=== PATIENT | male | born 1990 | race American Indian/Alaskan Native ===

== ENCOUNTER 2017-05-10 22:29 | Emergency (ER) | payer OTHER ==
[2017-05-11] MEDS ORDERED: DECADRON IM ONE (04:14)
[2017-05-11] MEDS ORDERED: LIDOCAINE VISCOUS 2% PO ONE (04:14)
--- NOTE | 2017-05-11 04:14 | Emergency Department Report ---
HPI - General Chief Complaint: Sore Throat Time Seen by Provider: 05/11/17 03:54 - HPI HPI: Patient is a 26-year-old male who presents to ED complaining of throat pain 4 days. Patient describes pain as throbbing in nature, 8 out of 10 intensity, nonradiating, localized to his throat. Admits pain with swallowing and eating. Patient denies fever/chills/ nausea/vomiting/abdominal pain/shortness of breath/ chest pain/headache. ED Past Medical Hx - Past Medical History Previous Medical History?: No - Surgical History Past Surgical History?: No - Social History Smoking Status: Never Smoker Substance Use Type: None - Medications Home Medications: Home Medications Medication Instructions Recorded Confirmed Last Taken Type Ibuprofen [Motrin] 800 mg PO Q8HR PRN #30 tablet 05/11/17 Unknown Rx ED Review of Systems ROS: Stated complaint: SORE THROAT Other details as noted in HPI Constitutional: denies: chills, fever Eyes: denies: eye pain, eye discharge, vision change ENT: throat pain. denies: ear pain Respiratory: denies: cough, shortness of breath, wheezing Cardiovascular: denies: chest pain, palpitations Endocrine: no symptoms reported Gastrointestinal: denies: abdominal pain, nausea, diarrhea Genitourinary: denies: urgency, dysuria Musculoskeletal: denies: back pain, joint swelling, arthralgia Skin: denies: rash, lesions Neurological: denies: headache, weakness, paresthesias Psychiatric: denies: anxiety, depression Hematological/Lymphatic: denies: easy bleeding, easy bruising Physical Exam - Physical Exam Vital Signs: Vital Signs 05/10/17 05/10/17 22:45 22:54 Temperature 104.7 F H 100.1 F H Pulse Rate 88 88 Respiratory 18 Rate Blood Pressure 146/90 Blood Pressure 146/90 [Right] O2 Sat by Pulse 98 98 Oximetry Physical Exam: GENERAL: Alert and oriented x3, no apparent distress, Normal Gait, atraumatic. HEAD: Head is normocephalic and a-traumatic. EYES: Extra ocular muscles are intact. Pupils are equal, round, and reactive to light and accommodation. EARS: symetrical, atraumatic, non tender, ear canal clear and moderate cerumen, tympanic membrance non inflamed. gross auditory nml bilaterally. NOSE: Nose symetrical, Nontender,Nares appeared normal. MOUTH:Mouth is well hydrated and without lesions. Tonsils mildly erythematous and swollen, Uvula midline, Tongue not elevated. Mucous membranes are moist. Posterior pharynx clear, no exudate or lesions. Patent airways. NECK: Supple. Non edematous, No carotid bruits. No lymphadenopathy or thyromegaly. No C-spine tenderness LUNGS: Symetrical with respiration, No wheezing, no rales or crackles, CTAB. HEART: S1, S2 present, regular rate and rhythm without murmur, no rubs, no gallops. Non tender to palpation SKIN: Warm and dry, No lesions, No ulceration or induration present. ED Course Vital Signs 05/10/17 05/10/17 22:45 22:54 Temperature 104.7 F H 100.1 F H Pulse Rate 88 88 Respiratory 18 Rate Blood Pressure 146/90 Blood Pressure 146/90 [Right] O2 Sat by Pulse 98 98 Oximetry ED Medical Decision Making - Medical Decision Making ED course: Rapid strep tests ordered rapid strep test negative Patient received 1 dose of Tylenol, 10 mg of Decadron Fever responsive to one dose of Tylenol. Vital signs stable patient is in no acute or respiratory distress. Discussed findings with patient about the negative strep. Discussed the patient that pharyngitis is contagious and to limit sharing spoons and such. to be sent home on Motrin Discussed with patient follow-up with primary care physician. Discussed a force and symptoms to return to ED Patient verbally states he understands and will comply to follow-up. Critical care attestation.: If time is entered above; I have spent that time in minutes in the direct care of this critically ill patient, excluding procedure time. ED Disposition Clinical Impression: Acute tonsillitis Qualifiers: Pharyngitis/tonsillitis etiology: unspecified etiology Qualified Code(s): J03.90 - Acute tonsillitis, unspecified Pharyngitis Qualifiers: Pharyngitis/tonsillitis etiology: unspecified etiology Qualified Code(s): J02.9 - Acute pharyngitis, unspecified Disposition: - TO HOME OR SELFCARE Is pt being admited?: No Does the pt Need Aspirin: No Condition: Stable Instructions: Pharyngitis (ED), Tonsillitis (ED) Additional Instructions: If symptoms worsening or new symptoms arise return to ED for evaluation Take your medication as prescribed. Prescriptions: Ibuprofen [Motrin] 800 mg PO Q8HR PRN #30 tablet PRN Reason: Pain Referrals: PRIMARY CARE, [Primary Care Provider] - 3-5 Days BRENDA FULLER MD [Referring] - 3-5 Days [facility] [Outside] - 3-5 Days [facility] [Outside] - 3-5 Days [facility] [Outside] - 3-5 Days Forms: Accompanied Note, Work/School Release Form(ED) Time of Disposition: 04:42
[2017-05-11] MEDS ORDERED: TYLENOL PO ONE (04:22)
[2017-05-11 05:05] VITALS: BP 139/86
== END 2017-05-11 05:05 | disposition home or self-care (01) ==
LOC: ED 22:29
DX: J03.90 Acute tonsillitis, unspecified (principal); J02.9 Acute pharyngitis, unspecified
CPT/HCPCS: 87116; 87430; 96372; 99282

== ENCOUNTER 2017-11-18 15:15 | Inpatient (IN) | payer SELFPAY ==
[2017-11-18] MEDS ORDERED: TORADOL IV ONE (15:39)
--- NOTE | 2017-11-18 15:54 | Emergency Department Report ---
Blank Doc - Documentation Documentation: Patient is a 27-year-old [place] male who is presenting with swelling for the past 2 weeks in the proximal bicep on the last left upper extremity. Patient states he is tender denies fever. Brief physical exam the patient has a very firm oval shaped area of swelling with some very slight fluctuance but otherwise very taut skin in the proximal bicep. Patient has no surrounding erythema. CT of the upper extremity with contrast be ordered to see if this is more consistent with an abscess versus a mass.
[2017-11-18] MEDS ORDERED: NACL ONE (16:06)
[2017-11-18 16:28] LABS: Basophils % (Auto) 0.5 % (0.0-1.8); Eosinophils # (Auto) 0.2 K/mm3 (0.0-0.4); Eosinophils % (Auto) 2.9 % (0.0-4.3); Hematocrit 42.8 % (35.5-45.6); Hemoglobin 14.5 gm/dl (11.8-15.2); Lymphocytes # (Auto) 2.5 K/mm3 (1.2-5.4); Lymphocytes % (Auto) 43.8 % (13.4-35.0); Mean Corpuscular HGB Conc 34 % (32-34); Mean Corpuscular Hemoglobin 28 pg (28-32); Mean Corpuscular Volume 81 fl (84-94); Monocytes # (Auto) 0.6 K/mm3 (0.0-0.8); Monocytes % (Auto) 10.1 % (0.0-7.3); Platelet Count 280 K/mm3 (140-440); Red Blood Count 5.26 M/mm3 (3.65-5.03)
[2017-11-18 16:37] LABS: BUN/Creatinine Ratio 10; Blood Urea Nitrogen 10 mg/dL (9-20); Calcium 8.5 mg/dL (8.4-10.2); Hemolysis Index 4
[2017-11-18] MEDS ORDERED: BENADRYL IV ONE (16:47)
[2017-11-18] MEDS ORDERED: BENADRYL ONE (16:48)
--- NOTE | 2017-11-18 17:23 | Emergency Department Report ---
HPI - HPI HPI: Patient is a 27-year-old male presents to ED with left arm mass/abscess for the past 2 weeks. Patient states that he had been working out at the gym and that the muscle to his temperature now. Patient states since then the masses, bigger. Patient states it's mildly tender. He denies any trauma injuries to the arm. She denies any medical history of any conditions, denies taking any medications. Admits to shellfish allergies He denies fever assess secession of this has vomited this abdominal pain or chest pain. <CARMEN COSTELLO - Last Filed: 11/18/17 19:01> <WARREN LAST - Last Filed: 11/18/17 19:23> - General Chief Complaint: Skin/Abscess/Foreign Body Time Seen by Provider: 11/18/17 15:34 ED Past Medical Hx - Past Medical History Previous Medical History?: No - Surgical History Additional Surgical History: tubes in ears as child - Social History Smoking Status: Never Smoker Substance Use Type: None <CARMEN COSTELLO - Last Filed: 11/18/17 19:01> <WARREN LAST - Last Filed: 11/18/17 19:23> - Medications Home Medications: Home Medications Medication Instructions Recorded Confirmed Last Taken Type Ibuprofen [Motrin] 800 mg PO Q8HR PRN #30 tablet 05/11/17 Unknown Rx ED Review of Systems ROS: Stated complaint: LFT UPPER ARM MASS/PAINFUL Other details as noted in HPI Constitutional: denies: chills, fever Eyes: denies: eye pain, eye discharge, vision change ENT: denies: ear pain, throat pain Respiratory: denies: cough, shortness of breath, wheezing Cardiovascular: denies: chest pain, palpitations Endocrine: no symptoms reported Gastrointestinal: denies: abdominal pain, nausea, diarrhea Genitourinary: denies: urgency, dysuria Musculoskeletal: denies: back pain, joint swelling, arthralgia Skin: denies: rash, lesions Neurological: denies: headache, weakness, paresthesias Psychiatric: denies: anxiety, depression Hematological/Lymphatic: denies: easy bleeding, easy bruising <CARMEN COSTELLO - Last Filed: 11/18/17 19:01> ROS: Stated complaint: LFT UPPER ARM MASS/PAINFUL Other details as noted in HPI <WARREN LAST - Last Filed: 11/18/17 19:23> Physical Exam - Physical Exam Vital Signs: Vital Signs 11/18/17 15:22 Temperature 98.5 F Pulse Rate 64 Respiratory 16 Rate Blood Pressure 121/85 O2 Sat by Pulse 98 Oximetry Physical Exam: GENERAL: Alert and oriented x3, no apparent distress, Normal Gait, atraumatic. HEAD: Head is normocephalic and a-traumatic. LUNGS: Symetrical with respiration, No wheezing, no rales or crackles, CTAB. HEART: S1, S2 present, regular rate and rhythm without murmur, no rubs, no gallops. Non tender to palpation EXTREMITIES/MUSCULOSKELETAL: No cyanosis, clubbing, rash, lesions or edema. Full ROM bilaterally. UE/LE Pulses 2+ bilaterally. LE and UE 5+ strength bilaterally, 7-8 cm puncture region mass, nonfluctuant, hard, nontender left upper arm anterior axillary region. NEUROLOGIC: The patient is cooperative with no focal neurologic deficits.t. Normal speech. Normal sensation in bilateral upper and lower extremities, No loss of sensation, SKIN: Warm and dry, No lesions, No ulceration or induration present. <CARMEN COSTELLO A - Last Filed: 11/18/17 19:01> - Physical Exam Vital Signs: Vital Signs 11/18/17 11/18/17 15:22 19:21 Temperature 98.5 F 101.5 F H Pulse Rate 64 Respiratory 16 Rate Blood Pressure 121/85 O2 Sat by Pulse 98 Oximetry <WARREN LAST - Last Filed: 11/18/17 19:23> ED Course Vital Signs 11/18/17 15:22 Temperature 98.5 F Pulse Rate 64 Respiratory 16 Rate Blood Pressure 121/85 O2 Sat by Pulse 98 Oximetry <CARMEN COSTELLO A - Last Filed: 11/18/17 19:01> Vital Signs 11/18/17 11/18/17 15:22 19:21 Temperature 98.5 F 101.5 F H Pulse Rate 64 Respiratory 16 Rate Blood Pressure 121/85 O2 Sat by Pulse 98 Oximetry <WARREN LAST - Last Filed: 11/18/17 19:23> ED Medical Decision Making - Lab Data Result diagrams: 11/18/17 15:44 11/18/17 15:44 - Radiology Data Radiology results: report reviewed, image reviewed FINAL REPORT EXAM: CT UPPER EXTREM LT W CON HISTORY: abscss vs mass upper bicep TECHNIQUE: CT of the left upper extremity was performed after the administration of intravenous contrast. Coronal and sagittal reconstructions were included. PRIORS: None. FINDINGS: A left maxillary sinus mucous retention cyst is seen. Several probable reactive left cervical internal jugular chain lymph nodes are seen. There is a focal heterogeneous masslike lesion in the subcutaneous tissues of the anterior aspect of the left upper arm anterior to the biceps muscle. There appears to be a fat plane between this lesion and biceps muscle. The lesion measures 3.3 centimeters AP by 6.0 centimeters transverse by 6.1 centimeters craniocaudal. A 2nd area of soft tissue stranding is seen along the anterior aspect of the left shoulder. This area measures 2.4 x 1.0 centimeters. Several small left axillary lymph nodes are likely reactive. IMPRESSION: 1. Heterogeneous masslike density in the subcutaneous fat of the anterior aspect of the left upper arm concerning for soft tissue neoplasm such as sarcoma versus hematoma. 2. Additional smaller area of subcutaneous soft tissue along the anterior aspect of the left shoulder may represent an additional site of involvement versus a separate skin lesion. Transcribed By: MG Dictated By: AMADOR VIZCAINO MD Electronically Authenticated By: AMADOR VIZCAINO MD Signed Date/Time: 11/18/17 1447 - Medical Decision Making 27-year-old male presents with Left arm mass CBC, BMP ordered. Labs within normal limits CT with contrast ordered. Patient received 50 mg of IV Benadryl due to a shellfish allergy. CT pending, CT scan report depicted above Discussed case with Dr. Last. Signing of patient to attending Dr. Berhane Zafar <CARMEN COSTELLO - Last Filed: 11/18/17 19:01> - Lab Data Result diagrams: 11/18/17 15:44 11/18/17 15:44 - Medical Decision Making Patient spiked a fever of 101.5 was feeling chills be treated with Tylenol did discuss the findings of the CT with the patient and Dr. Alexis who will admit the patient and antibiotics patient also needed a biopsy of this mass as well. <WARREN LAST - Last Filed: 11/18/17 19:23> Critical care attestation.: If time is entered above; I have spent that time in minutes in the direct care of this critically ill patient, excluding procedure time. <CARMEN COSTELLO - Last Filed: 11/18/17 19:01> Critical care attestation.: If time is entered above; I have spent that time in minutes in the direct care of this critically ill patient, excluding procedure time. <WARREN LAST - Last Filed: 11/18/17 19:23> ED Disposition <CARMEN COSTELLO - Last Filed: 11/18/17 19:01> Is pt being admited?: Yes Does the pt Need Aspirin: No <WARREN LAST - Last Filed: 11/18/17 19:23> Clinical Impression: Mass in armpit Qualifiers: Laterality: left Qualified Code(s): R22.32 - Localized swelling, mass and lump , left upper limb Disposition: DC-09 OP ADMIT IP TO THIS HOSP Condition: Stable
--- NOTE | 2017-11-18 18:51 | Cat Scan Report ---
FINAL REPORT EXAM: CT UPPER EXTREM LT W CON HISTORY: abscss vs mass upper bicep TECHNIQUE: CT of the left upper extremity was performed after the administration of intravenous contrast. Coronal and sagittal reconstructions were included. PRIORS: None. FINDINGS: A left maxillary sinus mucous retention cyst is seen. Several probable reactive left cervical internal jugular chain lymph nodes are seen. There is a focal heterogeneous masslike lesion in the subcutaneous tissues of the anterior aspect of the left upper arm anterior to the biceps muscle. There appears to be a fat plane between this lesion and biceps muscle. The lesion measures 3.3 centimeters AP by 6.0 centimeters transverse by 6.1 centimeters craniocaudal. A 2nd area of soft tissue stranding is seen along the anterior aspect of the left shoulder. This area measures 2.4 x 1.0 centimeters. Several small left axillary lymph nodes are likely reactive. IMPRESSION: 1. Heterogeneous masslike density in the subcutaneous fat of the anterior aspect of the left upper arm concerning for soft tissue neoplasm such as sarcoma versus hematoma. 2. Additional smaller area of subcutaneous soft tissue along the anterior aspect of the left shoulder may represent an additional site of involvement versus a separate skin lesion.
[2017-11-18] MEDS ORDERED: PROVENTIL IH PRN (19:24)
[2017-11-18] MEDS ORDERED: TYLENOL PO PRN (19:24)
--- NOTE | 2017-11-18 19:34 | History and Physical Report ---
History of Present Illness Chief complaint: My arm hurts, I feel sick, and i keep having fever History of present illness: 27 YO Male with Obesity presents to ED for evaluation. Pt states that he has experienced pain, redness, and swelling in his left arm for the past 1 month with worsening symptoms over the past week. Pt was seen at an urgent care center and treated for cellulitis, but failed outpatient therapy. Pt states that redness, pain and swelling has gotten progressively worse. Pt states that pain is 5-6/10, localized to left arm. Pt acknowledges fever, and pain which is exacerbated with arm movement. Pt seen and evaluated in ED and found to have LUE cellulitis as well as fever of 101.5. Pt underwent CT scan of the LUE which reveals a soft tissue mass with lymph node involvement, which is suspicious for soft tissue sarcoma. Oncology consulted. Past History Past Medical History: other (obesity) Past Surgical History: Other (Tympanostomy tube placement) Social history: , lives with family. denies: smoking, alcohol abuse, prescription drug abuse, IV drug use Family history: no significant family history (reviewed) Medications and Allergies Allergies Allergy/AdvReac Type Severity Reaction Status Date / Time shellfish derived Allergy Unknown Verified 11/18/17 15:24 Home Medications Medication Instructions Recorded Confirmed Last Taken Type Ibuprofen [Motrin] 800 mg PO Q8HR PRN #30 tablet 05/11/17 Unknown Rx Active Meds: Active Medications Acetaminophen (Tylenol) 650 mg PO Q4H PRN PRN Reason: Pain MILD(1-3)/Fever >100.5/ZHU Albuterol (Proventil) 2.5 mg IH Q4HRT PRN PRN Reason: Shortness Of Breath Ceftriaxone Sodium (Rocephin/Ns 1 Gm/50 Ml) 1 gm in 50 mls @ 100 mls/hr IV Q24HR [place] PRN Reason: Protocol Review of Systems Constitutional: fever, no weight loss, no weight gain, no chills, no sweats Ears, nose, mouth and throat: no ear pain, no ear discharge, no tinnitis, no decreased hearing, no nose pain, no nasal congestion, no nasal discharge Cardiovascular: no chest pain, no orthopnea, no palpitations, no edema, no syncope, no lightheadedness, no shortness of breath Respiratory: no cough, no cough with sputum, no excessive sputum, no hemoptysis , no shortness of breath, no dyspnea on exertion Gastrointestinal: no abdominal pain, no nausea, no vomiting, no diarrhea Genitourinary Male: no hematuria, no flank pain, no discharge, no urinary frequency, no urinary hesitancy Rectal: no pain, no incontinence, no bleeding Musculoskeletal: no neck pain, no shooting arm pain, no arm numbness/tingling, no low back pain, no shooting leg pain, no leg numbness/tingling Integumentary: redness Neurological: no head injury, no transient paralysis, no paralysis, no weakness , no parathesias, no numbness Psychiatric: no anxiety, no memory loss, no change in sleep habits, no sleep disturbances, no insomnia, no hypersomnia, no change in appetite Endocrine: no cold intolerance, no heat intolerance, no polyphagia, no excessive thirst, no polydipsia, no polyuria Hematologic/Lymphatic: no easy bruising, no easy bleeding, no lymphadenopathy, no lymphedema Allergic/Immunologic: no urticaria, no allergic rhinitis, no wheezing Exam - Constitutional Vitals: Temp Pulse Resp BP Pulse Ox 101.5 F H 64 16 121/85 98 11/18/17 19:21 11/18/17 15:22 11/18/17 15:22 11/18/17 15:22 11/18/17 15:22 General appearance: Present: mild distress - EENT Eyes: Present: PERRL ENT: hearing intact, clear oral mucosa - Neck Neck: Present: supple, normal ROM - Respiratory Respiratory effort: normal Respiratory: bilateral: CTA - Cardiovascular Heart Sounds: Present: S1 & S2. Absent: rub, click - Extremities Extremities: pulses symmetrical, No edema Peripheral Pulses: within normal limits - Abdominal General gastrointestinal: Present: soft, non-tender, non-distended, normal bowel sounds Male genitourinary: Present: normal - Rectal Rectal Exam: normal exam-external/orifice - Integumentary Integumentary: Present: clear, dry, erythema (4/6cm Left medial arm mass, indurated, firm, immobile, painful, with surrounding erythema.) - Musculoskeletal Musculoskeletal: strength equal bilaterally, other (Left aarm weakness. ) - Psychiatric Psychiatric: appropriate mood/affect, intact judgment & insight - Neurologic Neurologic: CNII-XII intact, moves all extremities Results - Labs CBC & Chem 7: 11/18/17 15:44 11/18/17 15:44 Labs: Abnormal lab results 11/18/17 Range/Units 15:44 RBC 5.26 H (3.65-5.03) M/mm3 MCV 81 L (84-94) fl Lymph % (Auto) 43.8 H (13.4-35.0) % [place] % (Auto) 10.1 H (0.0-7.3) % Assessment and Plan - Patient Problems (1) Cellulitis of left upper extremity Current Visit: Yes Status: Acute Plan to address problem: IV antibiotics, supportive care, pain control, serial physical exam. 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
[2017-11-19] MEDS ORDERED: ROCEPHIN/NS 1 GM/50 ML 1 GM/50 ML BAG IV SCH (10:00)
--- NOTE | 2017-11-19 10:02 | Progress Note ---
Assessment and Plan Assessment and plan: 27-year-old obese -[place] male patient was admitted with swelling , redness and tenderness of left upper arm of one month duration worse since one week --Possible cellulitis left upper extremity; IV antibiotics, pain medications, supportive care --Soft tissue sarcoma left upper arm; on CT; workup in progress IR consulted for biopsy, oncology consulted for further evaluation and management, consider orthopedic evaluation, Follow biopsy --SIRS by criteria; Empiric antibiotics, pain management, and supportive care --Obesity; BMI 35.7; counseling done advised diet modification, exercise as tolerated and weight reduction when medically stable --DVT prophylaxis with Lovenox Closely monitor the patient and adjust the management as needed Plan of care is reviewed with the patient and his at the bedside Disposition; follow biopsy, and consultants recommendations History Interval history: Patient seen and examined medical records reviewed Hospitalist Physical - Constitutional Vitals: Temp Pulse Resp BP Pulse Ox 98.1 F 60 18 137/86 99 11/19/17 07:20 11/19/17 07:20 11/19/17 07:20 11/19/17 07:20 11/19/17 07:20 General appearance: Present: no acute distress, well-nourished, obese - EENT Eyes: Present: PERRL, EOM intact - Neck Neck: Present: supple, normal ROM - Respiratory Respiratory effort: normal Respiratory: negative: rales, rhonchi, wheezing - Cardiovascular Rhythm: regular Heart Sounds: Present: S1 & S2 - Extremities Extremities: no ischemia, abnormal (left upper arm swelling and tenderness, nonpulsatile) - Abdominal General gastrointestinal: soft, non-tender, non-distended, normal bowel sounds - Integumentary Integumentary: Present: clear, warm - Psychiatric Psychiatric: appropriate mood/affect, cooperative - Neurologic Neurologic: CNII-XII intact, moves all extremities Results - Labs CBC & Chem 7: 11/18/17 15:44 11/18/17 15:44 Labs: Laboratory Last Values WBC 5.6 K/mm3 (4.5-11.0) 11/18/17 15:44 RBC 5.26 M/mm3 (3.65-5.03) H 11/18/17 15:44 Hgb 14.5 gm/dl (11.8-15.2) 11/18/17 15:44 Hct 42.8 % (35.5-45.6) 11/18/17 15:44 MCV 81 fl (84-94) L 11/18/17 15:44 MCH 28 pg (28-32) 11/18/17 15:44 MCHC 34 % (32-34) 11/18/17 15:44 RDW 14.0 % (13.2-15.2) 11/18/17 15:44 Plt Count 280 K/mm3 (140-440) 11/18/17 15:44 Lymph % (Auto) 43.8 % (13.4-35.0) H 11/18/17 15:44 [place] % (Auto) 10.1 % (0.0-7.3) H 11/18/17 15:44 Eos % (Auto) 2.9 % (0.0-4.3) 11/18/17 15:44 Baso % (Auto) 0.5 % (0.0-1.8) 11/18/17 15:44 Lymph # 2.5 K/mm3 (1.2-5.4) 11/18/17 15:44 [place] # 0.6 K/mm3 (0.0-0.8) 11/18/17 15:44 Eos # 0.2 K/mm3 (0.0-0.4) 11/18/17 15:44 Baso # 0.0 K/mm3 (0.0-0.1) 11/18/17 15:44 Seg Neutrophils % 42.7 % (40.0-70.0) 11/18/17 15:44 Seg Neutrophils # 2.4 K/mm3 (1.8-7.7) 11/18/17 15:44 Sodium 138 mmol/L (137-145) 11/18/17 15:44 Potassium 3.7 mmol/L (3.6-5.0) 11/18/17 15:44 Chloride 98.7 mmol/L (98-107) 11/18/17 15:44 Carbon Dioxide 25 mmol/L (22-30) 11/18/17 15:44 Anion Gap 18 mmol/L 11/18/17 15:44 BUN 10 mg/dL (9-20) 11/18/17 15:44 Creatinine 1.0 mg/dL (0.8-1.5) 11/18/17 15:44 Estimated GFR > 60 ml/min 11/18/17 15:44 BUN/Creatinine Ratio 10 % 11/18/17 15:44 Glucose 89 mg/dL (75-100) 11/18/17 15:44 Calcium 8.5 mg/dL (8.4-10.2) 11/18/17 15:44
--- NOTE | 2017-11-19 10:02 | Event Note ---
Date: 11/19/17 Consulted for LUE mass biopsy. The LUE CT demonstrates enhancement, but it is unclear if this mass is vascular in etiology (i.e. hemangioma, AVM, etc). I recommend duplex US evaluation, as core biopsy of a vascular mass is relatively contraindicated.
[2017-11-19] MEDS: cefTRIAXone 1 GM in NACL 0.9% 20 ML IV SCH (10:23)
[2017-11-19] MEDS ORDERED: Fluarix Quad 2017-2018(36 MOS+ IM ONE (12:00)
--- NOTE | 2017-11-19 15:42 | Hem/Onc Consultation ---
History of Present Illness - Reason for Consult Consult date: 11/19/17 - History of Present Illness 27 YO Male with Obesity presents to ED for evaluation. Pt states that he has experienced pain, redness, and swelling in his left arm for the past 1 month with worsening symptoms over the past week. Pt was seen at an urgent care center and treated for cellulitis, but failed outpatient therapy. Pt states that redness, pain and swelling has gotten progressively worse. Pt states that pain is 5-6/10, localized to left arm. Pt acknowledges fever, and pain which is exacerbated with arm movement. Pt seen and evaluated in ED and found to have LUE cellulitis as well as fever of 101.5. Pt underwent CT scan of the LUE which reveals a soft tissue mass with lymph node involvement, which is suspicious for soft tissue sarcoma. No shortness of breath, no N/V and no change in bowel habits. No chest pain. no headaches Past History Past Medical History: No medical history, other (obesity) Past Surgical History: Other (Tympanostomy tube placement) Social history: , lives with family. denies: smoking, alcohol abuse, prescription drug abuse, IV drug use Family history: no significant family history (reviewed) Medications and Allergies Allergies Allergy/AdvReac Type Severity Reaction Status Date / Time shellfish derived Allergy Unknown Verified 11/18/17 15:24 Home Medications Medication Instructions Recorded Confirmed Last Taken Type Ibuprofen [Motrin] 800 mg PO Q8HR PRN #30 tablet 05/11/17 Unknown Rx Active Meds: Active Medications Acetaminophen (Tylenol) 650 mg PO Q4H PRN PRN Reason: Pain MILD(1-3)/Fever >100.5/ZHU Albuterol (Proventil) 2.5 mg IH Q4HRT PRN PRN Reason: Shortness Of Breath Ceftriaxone Sodium 1 gm/ (Sodium Chloride) 20 mls @ 20 mls/10 min IV Q24HR [place] Last Admin: 11/19/17 10:23 Dose: 20 mls/10 min Review of Systems All systems: negative Constitutional: weight gain Exam - Constitutional Vitals: Last Vital Signs Temp 98.1 F 11/19/17 07:20 Pulse 60 11/19/17 07:20 Resp 18 11/19/17 07:20 BP 137/86 11/19/17 07:20 Pulse Ox 100 11/19/17 09:42 General appearance: no acute distress Performance status: 0-fully active - EENT Eyes: PERRL, EOM intact Lymph node exam: negative cervical, negative supraclavicular, negative axillary - Neck Neck: supple - Respiratory Respiratory: bilateral: CTA Extremities: no ischemia, abnormal (Left arm with 3 cm mass close to the axilla that is tender and well circumscribed and mobile) - Integumentary Integumentary: clear, warm, dry - Psychiatric Psychiatric: appropriate mood/affect Results - Labs lab Results: Laboratory Results - last 24 hr 11/18/17 11/18/17 15:44 15:44 WBC 5.6 RBC 5.26 H Hgb 14.5 Hct 42.8 MCV 81 L MCH 28 MCHC 34 RDW 14.0 Plt Count 280 Lymph % (Auto) 43.8 H Smith % (Auto) 10.1 H Eos % (Auto) 2.9 Baso % (Auto) 0.5 Lymph # 2.5 Smith # 0.6 Eos # 0.2 Baso # 0.0 Seg Neutrophils % 42.7 Seg Neutrophils # 2.4 Sodium 138 Potassium 3.7 Chloride 98.7 Carbon Dioxide 25 Anion Gap 18 BUN 10 Creatinine 1.0 Estimated GFR > 60 BUN/Creatinine Ratio 10 Glucose 89 Calcium 8.5 - Imaging and cardiology Other: report reviewed (CT scan of arm) Assessment and Plan 1- lt arm subcutaneous mass concerning for malignancy especially with rapid growth pattern. Agree with need to biopsy but would recommend surgical evaluation rather than a bx by IR. will consult surgery. will also order CT scan of the chest. Dr Em aware of the patient and will follow up next week.
--- NOTE | 2017-11-20 07:28 | Hem/Onc Progress Note ---
Assessment and Plan 1- lt arm subcutaneous mass concerning for malignancy especially with rapid growth pattern. Surgery will be seeing him today. CT scan of the chest ordered. if ready for discharge, can follow up with Dr Em Subjective Date of service: 11/20/17 Interval history: mass is hurting Objective - Constitutional Vitals: Last Vital Signs Temp 97.8 F 11/20/17 07:05 Pulse 70 11/20/17 07:05 Resp 16 11/20/17 07:05 BP 118/79 11/20/17 07:05 Pulse Ox 97 11/20/17 07:05 General appearance: no acute distress
--- NOTE | 2017-11-20 07:41 | Progress Note ---
Assessment and Plan Assessment and plan: 27 YO Male with Obesity presents to ED for evaluation. Pt states that he has experienced pain, redness, and swelling in his left arm for the past 1 month with worsening symptoms over the past week. Pt was seen at an urgent care center and treated for cellulitis, but failed outpatient therapy. Pt states that redness, pain and swelling has gotten progressively worse. Pt states that pain is 5-6/10, localized to left arm. Pt acknowledges fever, and pain which is exacerbated with arm movement. Pt seen and evaluated in ED and found to have LUE cellulitis as well as fever of 101.5. Pt underwent CT scan of the LUE which reveals a soft tissue mass with lymph node involvement, which is suspicious for soft tissue sarcoma. Oncology consulted. Evaluation oncologist felt that this could be secondary to malignancy due to the rapid growth pattern. Awaiting surgical input. Also a CT chest was ordered to look for any lymph nodes or metastasis. Patient was started on antibiotic therapy on admission. Vascular visit the patient initially wanted and Doppler ultrasound so that we do not biopsy of vascular mass.VASCULAR LAB PRELIMINARY REPORT showed "LUE ARTERIAL DOPPLER COMPLETED SOFT TISSUE CHANGES NOTED IN LT AXILLA, DOES NOT APPEAR TO BE VASCULARIZED 2.7 X 2.1 X 2.2CM" Will await full report Sepsis secondary to resumed cellulitis left upper extremity; present on admission * Fevers improved. 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 Await orthopedic evaluation, Follow biopsy Obesity; BMI 35.7; * counseling done advised diet modification, * exercise as tolerated and weight reduction when medically stable DVT prophylaxis with Lovenox Disposition; follow biopsy, and consultants recommendations History Interval history: Patient seen and examined this morning and noted distress still with some pain in the left upper extremity mass sites. Hospitalist Physical - Physical exam Narrative exam: VITAL SIGNS: Reviewed. GENERAL: The patient appeared well nourished and normally developed. Vital signs as documented. HEAD: No signs of head trauma. EYES: Pupils are equal. Extraocular motions intact. EARS: Hearing grossly intact. MOUTH: Oropharynx is normal. NECK: No adenopathy, no JVD. CHEST: Chest with clear breath sounds bilaterally. No wheezes, rales, or rhonchi. CARDIAC: Regular rate and rhythm. S1 and S2, without murmurs, gallops, or rubs. VASCULAR: No Edema. Peripheral pulses normal and equal in all extremities. ABDOMEN: Soft, without detectable tenderness. No sign of distention. No rebound or guarding, and no masses palpated. Bowel Sounds normal. MUSCULOSKELETAL: Good range of motion of all major joints. Extremities without clubbing, cyanosis or edema. NEUROLOGIC EXAM: Alert and oriented x 3. No focal sensory or strength deficits. Speech normal. Follows commands. PSYCHIATRIC: Mood normal. SKIN: No rash or lesions. lHis actually obeseeft upper arm swelling and tenderness, nonpulsatile - Constitutional Vitals: Temp Pulse Resp BP Pulse Ox 97.8 F 70 16 118/79 97 11/20/17 07:05 11/20/17 07:05 11/20/17 07:05 11/20/17 07:05 11/20/17 07:05 General appearance: Present: no acute distress, well-nourished, obese Results - Labs CBC & Chem 7: 11/18/17 15:44 11/18/17 15:44 Labs: Laboratory Last Values WBC 5.6 K/mm3 (4.5-11.0) 11/18/17 15:44 RBC 5.26 M/mm3 (3.65-5.03) H 11/18/17 15:44 Hgb 14.5 gm/dl (11.8-15.2) 11/18/17 15:44 Hct 42.8 % (35.5-45.6) 11/18/17 15:44 MCV 81 fl (84-94) L 11/18/17 15:44 MCH 28 pg (28-32) 11/18/17 15:44 MCHC 34 % (32-34) 11/18/17 15:44 RDW 14.0 % (13.2-15.2) 11/18/17 15:44 Plt Count 280 K/mm3 (140-440) 11/18/17 15:44 Lymph % (Auto) 43.8 % (13.4-35.0) H 11/18/17 15:44 Ware % (Auto) 10.1 % (0.0-7.3) H 11/18/17 15:44 Eos % (Auto) 2.9 % (0.0-4.3) 11/18/17 15:44 Baso % (Auto) 0.5 % (0.0-1.8) 11/18/17 15:44 Lymph # 2.5 K/mm3 (1.2-5.4) 11/18/17 15:44 Ware # 0.6 K/mm3 (0.0-0.8) 11/18/17 15:44 Eos # 0.2 K/mm3 (0.0-0.4) 11/18/17 15:44 Baso # 0.0 K/mm3 (0.0-0.1) 11/18/17 15:44 Seg Neutrophils % 42.7 % (40.0-70.0) 11/18/17 15:44 Seg Neutrophils # 2.4 K/mm3 (1.8-7.7) 11/18/17 15:44 Sodium 138 mmol/L (137-145) 11/18/17 15:44 Potassium 3.7 mmol/L (3.6-5.0) 11/18/17 15:44 Chloride 98.7 mmol/L (98-107) 11/18/17 15:44 Carbon Dioxide 25 mmol/L (22-30) 11/18/17 15:44 Anion Gap 18 mmol/L 11/18/17 15:44 BUN 10 mg/dL (9-20) 11/18/17 15:44 Creatinine 1.0 mg/dL (0.8-1.5) 11/18/17 15:44 Estimated GFR > 60 ml/min 11/18/17 15:44 BUN/Creatinine Ratio 10 % 11/18/17 15:44 Glucose 89 mg/dL (75-100) 11/18/17 15:44 Calcium 8.5 mg/dL (8.4-10.2) 11/18/17 15:44
--- NOTE | 2017-11-20 09:31 | Cat Scan Report ---
CT scan of chest with IV contrast: History: Mass axilla. Findings: No endobronchial or mediastinal mass. No mediastinal, hilar or axillary adenopathy. No pleural pericardial effusion. Normal lung parenchyma. No discrete nodularity or consolidation. Visualized upper abdominal viscera appears unremarkable. There is a mass measuring 5.9 x 5 cm in diameter with attenuation value of 35.7 HU noted at the anterior left axilla subcutaneous tissue. The attenuation value of the adjacent muscular tissue is 75.2 H U. Impression: Mass left axilla subcutaneous tissue could be a hematoma or a sarcoma among other conditions.
[2017-11-20] MEDS: cefTRIAXone 1 GM in NACL 0.9% 20 ML IV SCH (11:10)
--- NOTE | 2017-11-20 13:46 | Consultation ---
History of Present Illness Consult date: 11/20/17 Requesting physician: NERY GUNTER Chief complaint: mass left arm - History of present illness History of present illness: 27 yo M with no PMHx presented to hospital with painful mass of left arm. The patient states he went to the gym to work out as he usually does and began to feel sore in the left upper biceps area for the next 2-3 days following the work out. This was approximately one month ago. Since then he noticed swelling of that sore area into a lump and that lump has continued to grow over the last several weeks. The area has never drained fluid. It did become red and hot over the last few days, prompting him to come to ER. He denies f/c, CP, SOB, n/v, abd pain. He has never had anything like this in the past. He does not have a family hx of cancer. Past History Past Medical History: No medical history, other (obesity) Past Surgical History: Other (Tympanostomy tube placement) Social history: , lives with family. denies: smoking, alcohol abuse, prescription drug abuse, IV drug use Family history: no significant family history (reviewed), diabetes, hypertension Medications and Allergies Allergies Allergy/AdvReac Type Severity Reaction Status Date / Time shellfish derived Allergy Unknown Verified 11/18/17 15:24 Home Medications Medication Instructions Recorded Confirmed Last Taken Type Ibuprofen [Motrin] 800 mg PO Q8HR PRN #30 tablet 05/11/17 11/19/17 Unknown Rx Active Meds: Active Medications Acetaminophen (Tylenol) 650 mg PO Q4H PRN PRN Reason: Pain MILD(1-3)/Fever >100.5/ZHU Albuterol (Proventil) 2.5 mg IH Q4HRT PRN PRN Reason: Shortness Of Breath Ceftriaxone Sodium 1 gm/ (Sodium Chloride) 20 mls @ 20 mls/10 min IV Q24HR [place] Last Admin: 11/20/17 11:10 Dose: Not Given Review of Systems All systems: negative (10 pt ROS was performed and negative except for that listed in HPI) Exam Vital Signs Temp Pulse Resp BP Pulse Ox 98.5 F 64 16 121/85 98 11/18/17 15:22 11/18/17 15:22 11/18/17 15:22 11/18/17 15:22 11/18/17 15:22 Narrative exam: Gen: AAOx3. NAD ENT: no scleral icterus or conjunctival pallor. no LAD CV: S1, S2+. no m/r/g Resp: CTAB, no w/r/r/ Abd: soft, NT Ext: LUE firm, partially mobile, tender mass measuring approximately 5 x5 cm, located in the left outer axilla/upper arm over the biceps muscle. No erythema or drainage. No axillary lymphadenopathy Results - Labs 11/18/17 15:44 11/18/17 15:44 - Imaging CT scan - chest: report reviewed, image reviewed (mass left axilla subcutnaeous tissue, could be a hematoma or sarcoma among other conditions.) Additional studies: CT LUE -heterogenous masslike density in the subcutaneous fat of the anterior aspect of the left upper arm concerning for soft tissue neoplasm such as sarcoma vs hematoma. Dopple U/S LUE mass - prelim report from technologist - SOFT TISSUE CHANGES NOTED IN LT AXILLA, DOES NOT APPEAR TO BE VASCULARIZED 2.7 X 2.1 X 2.2CM Assessment and Plan 27 y/o M with left upper extremity mass, hematoma vs sarcoma 1. oncology consulted and concern for sarcoma 2. Will make NPO p MN and discuss with IR and Dr. Em about best approach to biopsy of mass in am. If excisional biopsy is best, will schedule for OR 3. I discussed the plan with the patient and his family and all questions answered. They understand and are agreeable to the plan. Thank you for this consultation, please call with questions or concerns.
--- NOTE | 2017-11-21 08:50 | Event Note ---
Date: 11/21/17 Reviewed u/s. Mass is not hypervascular or vascular in etiology. While hematoma is possible, the sonographic characteristics would favor a true solid mass. I will discuss this with Sher Macedo and Manav - we will decide the best way to proceed regarding core biopsy vs excision.
--- NOTE | 2017-11-21 09:52 | Event Note ---
Date: 11/21/[address] Norman (IR) and Dr. Em this am. Mass is solid in nature on arterial duplex. The mass is large and the entire anterior aspect of the mass is adjacent to overlying skin with the posterior aspect abutting biceps muscle. In order to obtain tissue for diagnosis, we will proceed with incisional biopsy. Further management will depend on pathology results. I discussed this with the patient and his . All risks and alternatives were discussed. I explained to the patient that the purpose of todays procedure is to obtain tissue for a diagnosis and he will need further resection based on the results of pathology. He understands. Consent was signed and placed on the chart.
[2017-11-21] MEDS ORDERED: XYLOCAINE CARDIAC IV ONE (10:09)
[2017-11-21] MEDS ORDERED: DIPRIVAN 10 MG/ML IV ONE (10:10)
[2017-11-21] MEDS ORDERED: DILAUDID ONE (10:10)
[2017-11-21] MEDS ORDERED: MARCAINE 0.5% 30 ML INFILTRATI ONE (10:23)
[2017-11-21] MEDS ORDERED: XYLOCAINE 1%/ EPI 1:100,000 INFILTRATI ONE ×2 (10:23→11:44)
--- NOTE | 2017-11-21 10:34 | Anesthesia Consultation ---
Anesthesia Consult and Med Hx Date of service: 11/21/17 - Airway Anesthetic Teeth Evaluation: Chipped ROM Head & Neck: Adequate Mental/Hyoid Distance: Adequate Mallampati Class: Class II Intubation Access Assessment: Probably Good - Pulmonary Exam CTA: Yes - Cardiac Exam Cardiac Exam: RRR - Pre-Operative Health Status ASA Pre-Surgery Classification: ASA2 Proposed Anesthetic Plan: General - Pulmonary Hx Smoking: No Hx Asthma: No COPD: No Hx Pneumonia: No - Cardiovascular System Hx Hypertension: No Hx Angina: No - Central Nervous System Hx Psychiatric Problems: No - Gastrointestinal Hx Gastroesophageal Reflux Disease: No - Endocrine Hx End Stage Renal Disease: No Hx Liver Disease: No - Hematic Hx Anemia: No - Other Systems Hx Cancer: No
--- NOTE | 2017-11-21 10:34 | Anesthesia Day of Surgery ---
Anesthesia Day of Surgery - Day of Surgery Patient Examined: Yes Patient H&P Reviewed: Yes Patient is NPO: Yes
[2017-11-21] MEDS ORDERED: ANCEF/STERILE WATER 2 GM/20 ML IV NR (10:35)
[2017-11-21] MEDS ORDERED: DILAUDID IV PRN (10:36)
[2017-11-21] MEDS ORDERED: ZOFRAN IV PRN (10:36)
--- NOTE | 2017-11-21 10:36 | Discharge Summary ---
<NORIS BEVERLY - Last Filed: 11/21/17 12:59> Providers - Providers Date of Admission: 11/18/17 19:24 Attending physician: NERY GUNTER MD 11/18/17 19:27 Consult to Interventional Radiology [CONS] Routine Consulting Provider: JAMAAL ORTEZ Reason For Exam: biopsy Left arm mass Place consult to:: dr. 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 cline Notified:: answering service Phone number called:: Was contact made?: Yes If yes, spoke with:: garrick Time called:: 09:44 11/20/17 07:59 Consult to Physician [CONS] Routine Consulting Provider: NORIS BEVERLY Reason For Exam: left upper ext mass Place consult to:: dr. beverly Notified:: answering service Phone number called:: [phone] Was contact made?: Yes If yes, spoke with:: saleem Time called:: 09:15 Primary care physician: LILIAN POLK Hospitalization Condition: Stable Disposition: DC-01 TO HOME OR SELFCARE Exam - Constitutional Vitals: Temp Pulse Resp BP Pulse Ox 97.7 F 75 16 122/86 95 11/21/17 11:53 11/21/17 12:38 11/21/17 12:38 11/21/17 12:38 11/21/17 12:38 Plan Activity: other (avoid lifting and performing heavy lifting with left arm) Wound: per your surgeon's advice (May remove dressing in 2 days, keep wound open to air. May shower, pat dry, do not scrub. Do not submerge incision. Leave stitches in place, they will be removed in the office.) Follow up with: BARRETT CLINE MD [Staff Physician] - 7 Days LILIAN POLK MD [Primary Care Provider] - 7 Days NORIS BEVERLY DO [Staff Physician] - 10 Days Forms: Work/School Release Form Prescriptions: traMADol [Ultram] 50 mg PO Q6HR PRN #20 tablet PRN Reason: Pain <NERY GUNTER - Last Filed: 11/21/17 21:25> Providers - Providers Date of Admission: 11/18/17 19:24 Attending physician: NERY GUNTER MD 11/18/17 19:27 Consult to Interventional Radiology [CONS] Routine Consulting Provider: JAMAAL ORTEZ Reason For Exam: biopsy Left arm mass Place consult to:: dr. 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 cline Notified:: answering service Phone number called:: Was contact made?: Yes If yes, spoke with:: garrick Time called:: 09:44 11/20/17 07:59 Consult to Physician [CONS] Routine Consulting Provider: NORIS BEVERLY Reason For Exam: left upper ext mass Place consult to:: dr. beverly Notified:: answering service Phone number called:: [phone] Was contact made?: Yes If yes, spoke with:: saleem Time called:: 09:15 Primary care physician: LILIAN POLK Hospitalization Reason for admission: left upper extremity mass Hospital course: 27 YO Male with Obesity presents to ED for evaluation. Pt states that he has experienced pain, redness, and swelling in his left arm for the past 1 month with worsening symptoms over the past week. Pt was seen at an urgent care center and treated for cellulitis, but failed outpatient therapy. Pt states that redness, pain and swelling has gotten progressively worse. Pt states that pain is 5-6/10, localized to left arm. Pt acknowledges fever, and pain which is exacerbated with arm movement. Pt seen and evaluated in ED and found to have LUE cellulitis as well as fever of 101.5. Pt underwent CT scan of the LUE which reveals a soft tissue mass with lymph node involvement, which is suspicious for soft tissue sarcoma. Oncology consulted. Evaluation oncologist felt that this could be secondary to malignancy due to the rapid growth pattern. Awaiting surgical input. Also a CT chest was ordered to look for any lymph nodes or metastasis. Patient was started on antibiotic therapy on admission. Vascular visit the patient initially wanted and Doppler ultrasound so that we do not biopsy of vascular mass.VASCULAR LAB PRELIMINARY REPORT showed "LUE ARTERIAL DOPPLER COMPLETED SOFT TISSUE CHANGES NOTED IN LT AXILLA, DOES NOT APPEAR TO BE VASCULARIZED 2.7 X 2.1 X 2.2CM". Patient was seen by vascular surgeon with no recommendation for an endovascular procedure. General surgery was consulted in addition to oncologist due to concern for sarcoma. Patient will proceed findings incisional biopsy and will be discharged to follow with oncologist and surgery outpatient. He remains afebrile. No convalescent evidence of cellulitis. 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 GENERAL: The patient appeared well nourished and normally developed. Vital signs as documented. HEAD: No signs of head trauma. EYES: Pupils are equal. Extraocular motions intact. EARS: Hearing grossly intact. MOUTH: Oropharynx is normal. NECK: No adenopathy, no JVD. CHEST: Chest with clear breath sounds bilaterally. No wheezes, rales, or rhonchi. CARDIAC: Regular rate and rhythm. S1 and S2, without murmurs, gallops, or rubs. VASCULAR: No Edema. Peripheral pulses normal and equal in all extremities. ABDOMEN: Soft, without detectable tenderness. No sign of distention. No rebound or guarding, and no masses palpated. Bowel Sounds normal. MUSCULOSKELETAL: Good range of motion of all major joints. Extremities without clubbing, cyanosis or edema. NEUROLOGIC EXAM: Alert and oriented x 3. No focal sensory or strength deficits. Speech normal. Follows commands. PSYCHIATRIC: Mood normal. SKIN: No rash or lesions. Left upper arm swelling mildly tender nonpulsatile - Constitutional Vitals: Temp Pulse Resp BP Pulse Ox 97.7 F 68 16 132/76 97 11/21/17 09:56 11/21/17 09:56 11/21/17 09:56 11/21/17 09:56 11/21/17 09:56 Plan Activity: advance as tolerated, fall precautions Wound: per your surgeon's advice, per wound nurse instructions
[2017-11-21] MEDS: cefTRIAXone 1 GM in NACL 0.9% 20 ML IV SCH (10:48)
[2017-11-21] MEDS ORDERED: NACL 0.9% 1000 ML 1,000 ML IV SCH (11:00)
[2017-11-21] MEDS ORDERED: PEPCID IV NR (11:00)
[2017-11-21] MEDS ORDERED: ZOFRAN ONE (11:44)
[2017-11-21] MEDS ORDERED: MARCAINE 0.5% INFILTRATI ONE (11:44)
--- NOTE | 2017-11-21 12:07 | Operative Report ---
Operative Report Operative Report: Date of operation: 11/21/17 Preoperative diagnosis: left upper extremity mass Postoperative diagnosis: same as above Procedure: Incisional biopsy of left upper extremity mass Surgeon: Angel Macedo DO Automobile Body Repairer Helper: Edgar Fairchild MD Anesthesia:LMA, local Findings: friable, lobulated mass Specimen: Left upper extremity mass biopsy EBL:<5cc Complications: None Disposition: stable to PACU HPI and indication: 27 yo M with no PMHx presented to ER with painful mass of left upper extremity. He underwent Ct scan of LUE, chest, and Art ultrasound of area and was found to have a 5.5cm mass concerning for sarcoma. In order to obtain a biopsy of the mass, surgery was consulted. All risks, benefits, and alternatives for surgery were discussed and the patient was scheduled for an incisional biopsy of the mass. Consent was signed. Procedure in detail: Patient was identified in the preoperative area and taken back to the OR and placed on the operating room table in supine position. After anesthesia was induced, the left arm and upper chest were prepped and draped in the usual sterile fashion and a time out performed. Local anesthetic consisting of a 50/50 mixture of 1% lidocaine and 0.25% marcaine was infiltrated into the skin at the intended incision site. A 2 cm longitudinal incision in line with the extremity was made in the center of the mass using a 15 blade. The mass was encountered directly under the skin. The mass was very friable and could not be kept in one piece despite great care. A portion of the mass was excised sharply and passed off the table as a specimen. We then turned out attention to obtaining hemostasis which was done using electrocautery, surgicel, and manual pressure. The wound was inspected and there was no bleeding. The skin was closed using interrupted 3-0 nylon sutures. The wound was covered using telfa and a 4x4 gauze and tape. At the end of the case, all sponge, instrument, and sharp counts were correct x2. The patient was awoken from anesthesia, extubated and taken to PACU in stable condition.
[2017-11-21 12:43] VITALS: BP 122/86
--- NOTE | 2017-11-21 14:23 | Hem/Onc Progress Note ---
Assessment and Plan 1. 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 Phone number for Dr Em's clinic provided. Subjective Date of service: 11/21/17 Interval history: Excisional biopsy today. Pt feeling well, ready to go home. Objective - Constitutional Vitals: Last Vital Signs Temp 97.7 F 11/21/17 11:53 Pulse 75 11/21/17 12:38 Resp 16 11/21/17 12:38 BP 122/86 11/21/17 12:38 Pulse Ox 95 11/21/17 12:38 General appearance: no acute distress - EENT Eyes: EOM intact - Neck Neck: supple - Respiratory Respiratory effort: Positive: normal Extremities: No edema - Psychiatric Psychiatric: appropriate mood/affect
--- NOTE | 2017-11-21 19:28 | Post Anesthesia Evaluation ---
- Post Anesthesia Evaluation Patient Participated: Yes Airway Patent: Yes Stable Respiratory Function: Yes Nausea/Vomiting: No Temp > 96.8F: Yes Pain Manageable: Yes Adequeate Hydration: Yes Anesthesia Complications: No
== END 2017-11-21 14:50 | disposition home or self-care (01) | DRG 872 ==
LOC: ED 15:15 → 3A 19:24
PROVIDERS: ADMIT Internal Medicine; ATTEND Internal Medicine
PROC: 3E0234Z Introduction of Serum, Toxoid and Vaccine into Muscle, Percutaneous Approach (ICD-10-PCS; principal; 2017-11-19)
PROC: 0JBF0ZX Excision of Left Upper Arm Subcutaneous Tissue and Fascia, Open Approach, Diagnostic (ICD-10-PCS; 2017-11-21)
DX: A41.9 Sepsis, unspecified organism (principal); L03.114 Cellulitis of left upper limb; C49.12 Malignant neoplasm of connective and soft tissue of left upper limb, including shoulder; R65.10 Systemic inflammatory response syndrome (SIRS) of non-infectious origin without acute organ dysfunction; E66.9 Obesity, unspecified; Z68.36 Body mass index [BMI] 36.0-36.9, adult; Z91.013 Allergy to seafood; Z71.3 Dietary counseling and surveillance; Z23 Encounter for immunization
CPT/HCPCS: 36415; 71260; 80048; 85025; 88307; 88342; 90686; 96374; 96375; J0690; J0696; J1170; J1200; J2001; J2405; J2704; J7030; Q9967